=== PATIENT | male | born 1995 | race Caucasian/White ===

== ENCOUNTER → 2020-05-30 | Outpatient (CLI) | payer OTHER ==
--- NOTE | 2020-05-30 16:01 | XR ---
Sacroiliac joints HISTORY: Low back pain 3 views of the sacroiliac joints Sacroiliac joints show a normal appearance. There is no evident hypertrophic change, ankylosis, or er osive change. Bone mineralization, joint spaces and alignment are maintained. IMPRESSION: Normal sacroiliac joints.
--- NOTE | 2020-05-30 16:09 | XR ---
Lumbosacral spine HISTORY: Low back pain 5 views of lumbosacral spine There is anterolisthesis grade 1 L4-5. Suspect bilateral spondylolysis at L4. Lumbar vertebral bodies show preserved height and bone mineralization. Loss of disc height present L5-S1. There is partial s acralization of L5 on the left. T12 does not show ribs for the purposes of counting for this study. IMPRESSION: Spondylolysis, spondylolisthesis, degenerative disc disease. Numbering scheme as above.
== END | disposition home or self-care (01) ==
LOC: RADXRYALE 15:18
PROVIDERS: ATTEND Nurse Practitioner Family
DX: M51.37 Other intervertebral disc degeneration, lumbosacral region (principal); M43.17 Spondylolisthesis, lumbosacral region; M47.817 Spondylosis without myelopathy or radiculopathy, lumbosacral region
CPT/HCPCS: 72110; 72202

== ENCOUNTER → 2020-08-21 | Outpatient (CLI) | payer OTHER ==
--- NOTE | 2020-08-22 06:53 | CT ---
EXAMINATION TYPE: CT lumbar spine wo con DATE OF EXAM: 08/21/2020 6:18 PM COMPARISON: Lumbar spine x-ray May 30, 2020 HISTORY: Lower back pain CT DLP: 658.8 mGycm Automated exposure control for dose reduction was used. Unenhanced CT of the lumbar spine was performed. Bone and soft tissue window settings are submitted as well as coronal and sagittal reconstructions. There are 5 lumbar type vertebra with sacralized left L5 segment. Bilateral pars defect L4 level with stable grade 1 anterolisthesis L4 and L5 measured 5 to 6 mm long posterior vertebral body margin. St able mild to moderate disc space narrowing at L4-L5 level otherwise vertebral body heights and disc s pace heights are maintained. Spinal canal grossly preserved. Axial images show mild facet arthropathy at the L3-L4 level mildly effacing posterior lateral thecal sac on axial image 60. Axial images at L4-L5 levels with spondylolisthesis with mild facet arthropathy bilaterally. There is broad-based disc protrusion with greater right foraminal component effacing exiting right L4 nerve s agittal image 23 and axial image 68. Left-sided neural foramina shows mild narrowing. Axial images at L5-S1 level show mild facet arthropathy bilaterally. Spinal canal preserved. Paraspinal muscle bulk is maintained. IMPRESSION: 1. Sacralized left L5 segment. This abnormal articulation may cause pain, correlate clinically. 2. Bilateral pars defect L4 level with stable spondylolisthesis L4 on L5. There is disc herniation an d facet arthropathy. There is felt encroachment on exiting right L4 nerve. Correlate clinically for r adiculopathy type symptoms.
== END ==
LOC: RADCTMAIN 17:23
PROVIDERS: ATTEND Orthopaedic Surgery
DX: M43.16 Spondylolisthesis, lumbar region (principal); M51.26 Other intervertebral disc displacement, lumbar region
CPT/HCPCS: 72131

== ENCOUNTER → 2024-01-20 | Outpatient (CLI) | payer BC ==
--- NOTE | 2024-01-22 09:15 | MR ---
EXAMINATION TYPE: MR lumbar spine wo con DATE OF EXAM: 01/20/2024 9:37 PM CLINICAL INDICATION:Male, 28 years old with history of [id number]; PHH, Spondylosis, low back pain that ra diates down right leg, sometimes left COMPARISON: None TECHNIQUE: Multi planar, multi sequence imaging was performed utilizing: T1-weighted, T2-weighted, a nd turbo inversion recovery imaging of the lumbar spine. IV Contrast: cc . (None if empty) FINDINGS: Alignment: The lumbar vertebral bodies have preserved heights with grade 1 anterolisthesis of L4 on L 5. Cord: The conus medullaris and the distal spinal cord appear unremarkable with regards to their signa l intensity and morphology. Bones/Discs: Mild degeneration changes throughout the spine with osteophyte formation and facet joint arthropathy. Multilevel disc desiccation is present at L4-L5. No abnormal inversion recovery signal to suggest bony edema. T12-L1: No evidence of significant spinal canal stenosis or neural foraminal stenosis. L1-L2: Disc bulge and facet joint arthropathy result in mild spinal canal and mild bilateral neural f oraminal stenosis. L2-L3: Disc bulge and facet joint arthropathy result in mild spinal canal and moderate bilateral neur al foraminal stenosis. L3-L4: Disc bulge and facet joint arthropathy result in mild spinal canal and mild bilateral neural f oraminal stenosis. L4-L5: Disc uncovering from grade 1 anterolisthesis and facet joint arthropathy with mild spinal luz maria l stenosis and severe bilateral neural foraminal stenosis. The nerves are compressed and the facet maria dolores ints and disc bulge bilaterally. L5-S1: The disc has a rounded posterior morphology without significant spinal canal stenosis. Facet j oint arthropathy with mild bilateral neural foraminal stenosis. No significant spinal canal or neural foraminal stenosis in the remainder of the visualized levels. Other findings: None. IMPRESSION: 1. Grade 1 anterolisthesis of L4 and L5 with severe bilateral neural foraminal stenosis which compre sses the bilateral exiting nerves. 2. No definitive evidence of disc herniation or significant spinal canal stenosis. 3. Mild disc degeneration with associated osteoarthritic changes.
== END | disposition home or self-care (01) ==
LOC: RADMRIMAIN 21:15
PROVIDERS: ATTEND Internal Medicine
DX: M51.16 Intervertebral disc disorders with radiculopathy, lumbar region (principal); M47.26 Other spondylosis with radiculopathy, lumbar region; M48.061 Spinal stenosis, lumbar region without neurogenic claudication; M43.06 Spondylolysis, lumbar region
CPT/HCPCS: 72148